=== PATIENT | male | born 1970 | race Two or more races ===

== ENCOUNTER 2019-11-22 23:06 | Emergency (ER) | payer SELFPAY ==
[~2019-11-22] VITALS: Ht 157.5 cm; Wt 81.6 kg
[2019-11-22 23:41] LABS: BASOPHILS # (AUTO) 0.1 /CMM (0.0-0.2); BASOPHILS % (AUTO) 1.3 % (0.0-2.0); EOSINOPHILS % (AUTO) 3.7 % (0.0-6.0); HEMATOCRIT 43 % (39-51); HEMOGLOBIN 14.5 g/dL (13.5-17.5); LYMPHOCYTES # (AUTO) 1.4 /CMM (0.8-4.8); LYMPHOCYTES % (AUTO) 25.1 % (20.0-44.0); MEAN CORPUSCULAR HGB CONC 34 g/dl (31.0-36.0); MEAN CORPUSCULAR VOLUME 88 fL (80-96); MONOCYTES # (AUTO) 0.4 /CMM (0.1-1.30); MONOCYTES % (AUTO) 6.9 % (2.0-12.0); NEUTROPHILS # (AUTO) 3.6 /CMM (1.8-8.9); PLATELET COUNT (AUTO) 271 /CMM (150-450); RED BLOOD CELL COUNT(AUTO) 4.92 MIL/uL (4.5-6.0); WHITE BLOOD COUNT (AUTO) 5.7 K/uL (4.3-11.0)
--- NOTE | 2019-11-22 23:43 | NUR ---
PATIENT CAME TO ER BED 1 C/O MIDDSTERNAL CHEST PAIN 4-5x DAYS. PATIENT STATES THAT HE CURRENTLY DOES NOT HAVE ANY CHEST PAIN AND DID NOT TAKE ANY PAIN MEDICATIONS. AAOX4. NO SOB. BREATHING EVENLY AND UNLABORED ON ROOM AIR. CONNECTED TO THE MONITOR.
--- NOTE | 2019-11-22 23:44 | NUR ---
XRAY AT BEDSIDE.
[2019-11-22 23:49] LABS: CALCIUM, SERUM 7.5 mg/dL (8.5-10.1); CARBON DIOXIDE 30 mmol/L (21-32); CHLORIDE 109 mmol/L (98-107); GLUCOSE 110 mg/dL (74-106); POTASSIUM 3.7 mmol/L (3.5-5.1); SODIUM SERUM 142 mmol/L (136-145); UREA NITROGEN, BLOOD 18 mg/dL (7-18)
[2019-11-23] MEDS ORDERED: FAMOTIDINE/PF INJ 20 MG/2 ML VIAL IV ONE (00:23)
[2019-11-23] MEDS ORDERED: ONDANSETRON HCL/PF 4 MG/2 ML VIAL ONE (00:23)
[2019-11-23] MEDS: ONDANSETRON HCL/PF 4 MG/2 ML VIAL IV ONE (00:29)
[2019-11-23] MEDS: FAMOTIDINE/PF INJ 20 MG/2 ML VIAL IV ONE (00:29)
--- NOTE | 2019-11-23 01:26 | NUR ---
Patient discharged to home in stable condition. Written and verbal after care instructions given. Patient verbalizes understanding of instruction.
--- NOTE | 2019-11-23 01:26 | NUR ---
PATIENT STATES THAT HE WILL WAIT IN THE WAITING ROOM FOR THE BUS IN THE MORNING.
--- NOTE | 2019-11-23 01:26 | NUR ---
IV removed. Catheter intact and site benign. Pressure and 4x4 applied to site. No bleeding noted.
[2019-11-23 01:27] VITALS: BP 116/61
== END 2019-11-23 01:28 | disposition home or self-care (01) ==
LOC: ER 23:10
DX: R07.89 Other chest pain (principal); R06.02 Shortness of breath; J44.9 Chronic obstructive pulmonary disease, unspecified
CPT/HCPCS: 36415 ×2; 71045; 80048; 83880; 84484; 85025; 93005; 96374; 96375; 99285; J2405; J3490